=== PATIENT | female | born 1990 | race Caucasian/White ===

== ENCOUNTER 2017-01-01 12:07 | Emergency (ER) | payer OTHER ==
[~2017-01-01] VITALS: Ht 170.2 cm; Wt 70.3 kg
[~2017-01-01 12:07] MED LIST: NORCO 5/325 MG1 TAB PO; ZOFRAN4 M2 PO
[2017-01-01 12:12] VITALS: BP 154/73
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
--- NOTE | 2017-01-01 13:30 | NUR ---
PT TO BED 5
--- NOTE | 2017-01-01 13:48 | NUR ---
ERMD AT BEDSIDE
--- NOTE | 2017-01-01 13:50 | NUR ---
DR. DENIS PRESENT AT BEDSIDE.
[2017-01-01] MEDS ORDERED: NACL 0.9% 1,000 ML IV SCH (13:53)
[2017-01-01] MEDS ORDERED: ONDANSETRON 4 MG/2 ML VIAL IVP ONE (13:55)
[2017-01-01] MEDS ORDERED: FAMOTIDINE 20 MG/2 ML VIAL IVP ONE (13:55)
[2017-01-01] MEDS ORDERED: diphenhydrAMINE 50 MG/ML VIAL IVP ONE (13:55)
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
[2017-01-01 16:13] VITALS: BP 121/69
== END 2017-01-01 16:05 | disposition home or self-care (01) ==
LOC: MED 12:07
DX: G43.909 Migraine, unspecified, not intractable, without status migrainosus (principal); Z90.49 Acquired absence of other specified parts of digestive tract
CPT/HCPCS: 36415; 80053; 81001; 81025; 82150; 83690; 85025; 96374; 96375; 99284; J1200; J2405; J3490; J7030

== ENCOUNTER 2017-03-12 15:22 | Emergency (ER) | payer OTHER ==
[~2017-03-12] VITALS: Ht 172.7 cm; Wt 72.6 kg
[~2017-03-12 15:22] MED LIST changes: -NORCO 5/325 MG1 TAB PO; +ONDA4ODT2 PO; -ZOFRAN4 M2 PO
[2017-03-12 15:45] VITALS: BP 97/77
--- NOTE | 2017-03-12 19:48 | NUR ---
PATIENT LEFT WITHOUT BEING SEEN BY DR. MUÑIZ. NO FURTHER CARE PROVIDED FOR PATIENT.
== END 2017-03-12 19:48 | disposition left against medical advice (07) ==
LOC: MED 15:22
DX: R11.2 Nausea with vomiting, unspecified (principal); R19.7 Diarrhea, unspecified; Z53.21 Procedure and treatment not carried out due to patient leaving prior to being seen by health care provider

== ENCOUNTER 2018-12-24 12:51 | Emergency (ER) | payer OTHER ==
[~2018-12-24] VITALS: Ht 170.2 cm; Wt 77.1 kg
[2018-12-24 13:10] VITALS: BP 136/82
--- NOTE | 2018-12-24 13:14 | NUR ---
PT AMBULATES TO BED 5
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
[2018-12-24] MEDS ORDERED: KETOROLAC 60 MG/2 ML VIAL IM ONE (14:15)
[2018-12-24] MEDS ORDERED: MORPHINE SULFATE 4 MG/ML SYR IM ONE (14:15)
--- NOTE | 2018-12-24 14:34 | NUR ---
PER PATIENT HOLD ORDERED MORPHINE SHOT FOR NOW. PT WANTS TO SEE IF TORADOL WILL RELIEVE HER PAIN FIRST. WILL CONTINUE TO MONITOR
[2018-12-24 14:38] LABS: APPEARANCE,URINE CLEAR (CLEAR); BILIRUBIN,URINE NEGATIVE (NEGATIVE); BLOOD, URINE NEGATIVE (NEGATIVE); COLOR,URINE YELLOW (YELLOW); LEUKOCYTE ESTERASE ,URINE NEGATIVE (NEGATIVE); NITRITE, URINE NEGATIVE (NEGATIVE); UGLUCOSE NEGATIVE (NEGATIVE)
[2018-12-24 15:08] LABS: CANNABINOID, URINE NEG. ng/mL (NEG <=50); COCAINE, URINE NEG. ng/mL (NEG <=300); OPIATE, URINE NEG. ng/mL (NEG <=2000); PHENCYCLIDINE SCREEN,URINE NEG. ng/mL (NEG <=25)
[2018-12-24 15:17] LABS: BARBITURATE, URINE NEG. ng/ml (NEG <=200); BENZODIAZEPINE, URINE NEG. ng/mL (NEG <=200)
[2018-12-24 16:13] VITALS: BP 136/82
--- NOTE | 2018-12-24 16:14 | NUR ---
Patient discharged with v/s stable. Written and verbal after care instructions given and explained. Patient alert, oriented and verbalized understanding of instructions. Ambulatory with steady gait. All questions addressed prior to discharge. ID band removed. Patient advised to follow up with PMD. Rx of VOLTAREN AND TRAMADOL given. Patient educated on indication of medication including possible reaction and side effects. Opportunity to ask questions provided and answered.
== END 2018-12-24 16:14 | disposition home or self-care (01) ==
LOC: MED 12:51
DX: M54.41 Lumbago with sciatica, right side (principal); F41.9 Anxiety disorder, unspecified; Z79.899 Other long term (current) drug therapy
CPT/HCPCS: 72131; 80305; 81003; 81025; 96372; 99284; J1885; J2270